=== PATIENT | male | born 1990 | race Hispanic/Latino ===

== ENCOUNTER 2024-10-04 02:26 | Emergency (ER) | payer OTHER ==
[2024-10-04] MEDS ORDERED: Piperacillin/Tazobactam 3.375 GM VIAL ONE ×2 (02:41→20:21)
[2024-10-04] MEDS ORDERED: Vancomycin 1 GM VIAL ONE ×2 (02:41→20:21)
[2024-10-04 03:05] LABS: Hematocrit 33.8 % (38.8-50.0); Hemoglobin 11.9 g/dL (13.5-17.5); MDiff Complete? YES; Mean Corpuscular HGB CONC 35.2 g/dL (32.0-36.0); Mean Corpuscular Hemoglobin 30.2 pg (27.0-33.0); Mean Corpuscular Volume 85.8 fL (81.2-95.1); Mean Platelet Volume 8.9 fL (7.4-10.4); Platelet Count 484 10x3/uL (150-450); RBC Distribution Width 12.6 % (11.5-14.5); Red Blood Cell (RBC) Count 3.94 10x6/uL (4.32-5.72); White Blood Cell (WBC) Count 26.4 10x3/uL (3.5-10.5)
[2024-10-04 03:19] LABS: ALT (SGPT) 48 U/L (8-55); AST (SGOT) 29 U/L (5-34); Albumin 2.8 g/dL (3.5-5.0); Alkaline Phosphatase 71 U/L (40-110); Anion Gap 15 mmol/L (10-20); BUN (Urea Nitrogen) 24 mg/dL (8.9-20.6); Bilirubin, Total 0.5 mg/dL (0.2-1.2); Calc. Creatinine Clearance 0 mL/min (70-130); Calcium 8.7 mg/dL (7.8-10.44); Carbon Dioxide 21 mmol/L (22-29); Chloride 103 mmol/L (98-107); Estimated GFR 118; Globulin 4.4 g/dL (2.4-3.5); Glucose 123 mg/dL (70-105); Potassium 4.2 mmol/L (3.5-5.1); Protein, Total 7.2 g/dL (6.0-8.3); Sodium 135 mmol/L (136-145)
[2024-10-04 03:29] LABS: Band 5 % (5-11); Lymphocytes 11 % (21-51); Monocytes 4 % (0-10); Neutrophil 80 % (42-75)
[2024-10-04 03:30] LABS: Platelet Adequacy Comment Appears Increased
[2024-10-04 03:31] LABS: RBC Morph Comment Within Normal Limits
[2024-10-04] MEDS ORDERED: Lisinopril 10 MG TAB PO SCH (08:00)
[2024-10-04] MEDS ORDERED: Acetaminophen 500 MG TAB ONE (11:07)
[2024-10-04 21:46] LABS: #Basophils 0.07 10x3/uL (0.0-0.2); #Eosinophils 0.13 10x3/uL (0.0-0.5); #Monocytes 0.58 10x3/uL (0.0-1.1); %Basophils 0.4 % (0.0-2.0); %Eosinophils 0.7 % (0.0-6.0); %Lymphocytes 16.6 % (18.0-47.0); %Monocytes 3.2 % (0.0-10.0); %Neutrophils 77.5 % (40.0-75.0); Hematocrit 29.6 % (38.8-50.0); Hemoglobin 10.1 g/dL (13.5-17.5); Mean Corpuscular HGB CONC 34.1 g/dL (32.0-36.0); Mean Corpuscular Hemoglobin 29.8 pg (27.0-33.0); Mean Corpuscular Volume 87.3 fL (81.2-95.1); Platelet Count 451 10x3/uL (150-450); Red Blood Cell (RBC) Count 3.39 10x6/uL (4.32-5.72); White Blood Cell (WBC) Count 18.3 10x3/uL (3.5-10.5)
[2024-10-04 21:53] LABS: ALT (SGPT) 39 U/L (8-55); AST (SGOT) 24 U/L (5-34); Albumin 2.7 g/dL (3.5-5.0); Alkaline Phosphatase 66 U/L (40-110); Anion Gap 12 mmol/L (10-20); BUN (Urea Nitrogen) 16 mg/dL (8.9-20.6); Bilirubin, Total 0.3 mg/dL (0.2-1.2); Calc. Creatinine Clearance 0 mL/min (70-130); Calcium 8.5 mg/dL (7.8-10.44); Carbon Dioxide 23 mmol/L (22-29); Chloride 106 mmol/L (98-107); Estimated GFR 116; Globulin 4.2 g/dL (2.4-3.5); Glucose 151 mg/dL (70-105); Potassium 3.7 mmol/L (3.5-5.1); Protein, Total 6.9 g/dL (6.0-8.3); Sodium 137 mmol/L (136-145)
== END 2024-10-05 06:44 | disposition short-term general hospital (02) ==
LOC: EEVIPCON 02:26 → CSHERS 02:26
DX: R04.0 Epistaxis (principal); A41.9 Sepsis, unspecified organism; L03.116 Cellulitis of left lower limb; I10 Essential (primary) hypertension; Z79.899 Other long term (current) drug therapy
CPT/HCPCS: 36415; 80053; 83605; 84145; 85025; 87040; 96365; 96366; 96367; J2543; J3370